=== PATIENT | female | born 1960 | race Caucasian/White ===

== ENCOUNTER 2021-06-28 00:15 | Day surgery (SDC) | payer OTHER, SELFPAY ==
[2021-06-20 10:40] VITALS: BMI 30.2
--- NOTE | 2021-06-20 10:55 | PC.NURSE ---
Report to the Outpatient Waiting Room, entrance under the green pavilion located off [facility], at time 0630 on date06/28/21. OR Time: 0830. - You and your visitor will be asked a series of questions to screen for COVID 19 for your protection. - A mask is required within the hospital. - Only one visitor is allowed at this time. Patient visitors will be guided where to wait when not with patient. Preoperative COVID Testing Requirements: No COVID Test needed if: (proof is required; if not received patient will have Rapid Test prior to entry) - Patient has received COVID Vaccine at least 14 days prior to procedure date or - Patient has positive COVID test result within last 90 days of surgery date. COVID Test needed if above criteria is not met If not COVID vaccinated a COVID test must be conducted within 72 hours of surgery and patient is asked to isolate self from time of testing until procedure. You will go to the [facility] for your COVID testing. The [facility] is located at the corner of [address] [facility]. You will only be called if COVID results are positive and your surgeon may reschedule your elective surgery date. Patients may have clear liquids (water, carbonated beverages, clear teas, apple juice) until 3 hours prior to surgery with a maximum of 20 ounces. - No food from midnight until time of surgery - Infants may have breast milk until 4 hours before surgery, infant formula 6 hours prior to surgery. - Children will be allowed to drink immediately following surgery. If applicable, please bring a bottle or sippy cup to assist with drinking. Juice, water, soda, and popsicles are readily available. For infants on formula, please bring formula the day of surgery. Pacifiers are allowed. Take the following medications with a SIP of water the morning of surgery: LEVOTHYROXINE Medications to discontinue per physician: VITAMINS/SUPPLEMENTS Date to take last dose: 06/24/21 Please no make-up, nail senegalese, hairspray, perfume, deodorant, or body powder the day of surgery. No jewelry (including any body piercings) or valuables the day of surgery, leave them at home. Please take a shower or bath the night before, or the morning of, surgery with an antibacterial soap. Wear comfortable, loose fitting clothing. Children are encouraged to wear pajamas. HIBICLENS SHOWER - Jewelry must be removed prior to entering the operating room. Rings and piercings that are not removed may be cut off. - The hospital will not accept responsibility for valuables. - Please leave all valuables, including medications, at home the day of surgery. If you are going home after surgery, a licensed boom truck driver must drive you home. - NO public transportation without another adult. - We recommend that an adult stay with you for 24 hours following discharge. - We also recommend that you do not drive, make important decision, drink alcoholic beverages, or take any drugs that were not prescribed by your health care provider for at least 24 hours after your discharge time. For Pediatric surgeries, we recommend two adults accompany the child home (only one inside the building at this time). Follow any additional instructions given to you from your surgeon. Telephone instructions given to DEEPA NAILS and asked if any additional questions and then verbalized understanding. Patient advised to call surgeon office or pre surgery nurse liaison [phone] if any additional questions.
--- NOTE | 2021-06-27 12:44 | PM.SD2 ---
Same Day Admit/Disch: HPI History of Present Illness Chief complaint: Incisional Hernia Narrative: Sanam Pantoja is a 61 year old female Who had attempted laparoscopic hysterectomy which was converted to an open hysterectomy at [facility] in November of 2020. Last February, she noticed an umbilical bulge in began experiencing intermittent pain there which was worsened with coughing. It was also worse when she worked out or participated in spinning class. She was seen in the office and found to have a reducible umbilical hernia at the very top of her previous lower abdominal midline incision. It is thought to be a part of the incision. She is taken to surgery now for repair of incisional hernia with mesh. 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) Gender identity (if verbalized by the patient): Female Spiritual care concerns: No Same Day Admit/Disch: Med Pre-admit Medications Home Medications Medication Instructions Recorded Confirmed Type cholecalciferol (vitamin D3) 10 10 mcg PO DAILY 05/10/21 06/28/21 History mcg (400 unit) capsule levothyroxine 25 mcg capsule 25 mcg PO DAILY 05/15/21 06/28/21 History rosuvastatin 10 mg tablet 10 mg PO HS 05/15/21 06/28/21 History hydrocodone-acetaminophen 1 - 2 tablet PO Q6H PRN #15 tablet 06/28/21 Rx ketorolac 10 mg PO Q6H 4 Days #16 tablet 06/28/21 Rx Exam Const: General: comfortable, no acute distress, alert and awake HENMT: Head: normocephalic and atraumatic Mouth: Yes Normal oral and palatal mucosa present Eyes: Conjunctivae: conjunctivae normal Pupils: Equal, round and reactive pupils present EOM: EOMs intact bilaterally Neck: Neck: normal visual inspection, no lymphadenopathy and nontender Resp: Effort & Inspection: normal respiratory effort Auscultation: clear to auscultation bilaterally Cardio: Rate: regular rate Rhythm: regular rhythm Heart sounds: no gallops, no murmurs and no rubs GI: Inspection: non-distended, scar ( Lower abdominal midline scar that goes as high as the top of the umbilicu), visible herniation ( incisional hernia at the umbilicus with slight skin discoloration) and other ( laparoscopic trocar scars as well) GI Palp: Yes Soft to palpation, No Tenderness to palpation present (GI), No Hepatomegaly present, No Splenomegaly present and Yes Hernia present ( incisional hernia at the umbilicus that is reducible.) Auscultation: normal bowel sounds Skin: Lesions: no lesions Rashes: no rashes Neuro: General: no focal motor deficits and CN's II-XI intact bilaterally Cranial nerves: Yes Equal, round and reactive pupils present, Yes Bilaterally intact EOM present, Yes facial symmetry and Yes Midline tongue present Speech: normal speech Motor exam (neuro): 5/5 motor strength present throughout and Motor abnormalities not present Extrem: General: no clubbing, cyanosis or edema and edema Psych: Affect: normal affect Thought process: Normal thought process present Insight: Good insight present (Psych) DS: Summary Time Spent with Patient Time attestation: Total time spent providing and/or party coordinator
[2021-06-28] VITALS (8 sets, daily range): BP systolic 103–122; BP diastolic 55–77; PULSE 66–76; RESP 12–16; TEMP 36.3–36.5; O2SAT 94–99
[2021-06-28] MEDS: ACETAMINOPHEN 500 MG TABLET 1000 MG PO (06:59)
[2021-06-28] MEDS: KETOROLAC 15 MG/ML VIAL (*BKC) IV PUSH (07:27)
--- NOTE | 2021-06-28 07:49 | WPDHPUPDATE1 ---
History and Physical Update Update Date/Time: 06/28/21 07:49 History and Physical has been reviewed, including an updated exam of the patient. There are NO changes in the patient's condition. Risks, benefits, and alternatives have been discussed and questions answered. Patient agrees to proceed with procedure.
[2021-06-28] MEDS: LACTATED RINGERS 1,000 ML 30 ML IV CONT ×2 (07:54→10:23)
--- NOTE | 2021-06-28 08:08 | WPDANESEPPF ---
Anes - Initial Pre Proc Eval Procedure: Operation Date: 06/28/21 08:30 Proposed Procedures p Repair Periumbilical Incisional Hernia Repair with Mesh - Yousif Raymond MD Date/Time: 06/28/21 08:08 Surgeon: Yousif Raymond MD Pre Op Diagnosis: Incisional Hernia Patient Data Age: 61 Gender: F Height: 1.5 m Weight: 69.2 kg Last Vital Signs Temp 36.3 C L 06/28/21 07:45 Pulse 76 06/28/21 07:45 Resp 16 06/28/21 07:45 BP 118/77 06/28/21 07:45 Pulse Ox 97 06/28/21 07:45 Allergies Allergy/AdvReac Type Severity Reaction Status Date / Time Sulfa (Sulfonamide Allergy Mild HIVES, Verified 06/28/21 06:55 Antibiotics) ITCHING Home Medications Medication Instructions Recorded Confirmed Type cholecalciferol (vitamin D3) 10 10 mcg PO DAILY 05/10/21 06/28/21 History mcg (400 unit) capsule levothyroxine 25 mcg capsule 25 mcg PO DAILY 05/15/21 06/28/21 History rosuvastatin 10 mg tablet 10 mg PO HS 05/15/21 06/28/21 History Patient hx anesthesia problems: none Family hx anesthesia problems: none Results Review: All pre-operative results and documents have been reviewed as part of the pre-operative evaluation. 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 Informed Consent: The patient's anesthetic plan and its attendant risks and benefits were discussed with the patient/family/POA. Questions were solicited and answers provided to the satisfaction of the patient/family/POA.
[2021-06-28] MEDS: ceFAZolin 2 GM/D5W 50 ML 2 GM/50 ML BAG IVPB (08:53)
[2021-06-28] MEDS: BUPIVACAINE HCL 0.5% PF 30 ML VIAL INFILTRATE ×2 (09:10→09:59)
--- NOTE | 2021-06-28 10:39 | W.PM.PROC2 ---
Procedure Note - Detailed Date of Procedure 06/28/21 Pre-op Diagnosis Incisional Hernia Post-op Diagnosis same Procedure Performed Repair incisional hernia with Ventrio ST underlay mesh Surgeon Yousif Raymond MD Technology Strategist JESSICA Ngo Anesthesia general and local (0.5% Marcaine) Indications Patient had a previous hysterectomy through a lower abdominal midline incision. The incision extended up above the umbilicus. She has developed a bulge in the umbilicus and is noted to have an incisional hernia. She is taken to surgery now for repair. Findings The majority of the hernia defect was actually above the umbilicus. Only the lower most aspect was involved with the umbilical skin. There was no umbilical hernia. There were no other abdominal wall defects by palpation over the rest of her incision. Description of Procedure Patient was taken to surgery and IV sedation was administered. The entire abdomen was prepped and draped. The uppermost aspect of her previous incision extended above the umbilicus. I katherine an ellipse around the area of the old incision that would be excised. This ellipse extended a little below the umbilicus as well. I then infiltrated local all into the area of the anticipated skin excision. I then excised this ellipse of scar tissue. This was discarded. Cautery was used for hemostasis. I started to dissect the hernia sac. As I opened the hernia sac, I could see that much of the defect was still cephalad of my incision. I infiltrated additional local into the skin. I extended the incision about 3 cm cephalad from its original location. Dissection was carried down through the subcutaneous and now the edges of the hernia defect were well exposed by the skin incision. I dissected and removed the rest of the hernia sac. I then undermined the subcutaneous all around the fascial edges of the hernia defect. The hernia defect was a good-sized being 4 cm in craniocaudad dimension and 3.5 cm in lateral dimension. The umbilical skin was dissected off the fascia and we undermined well below the umbilicus. Eventually we had a good margin of fascia exposed to repair the hernia with underlay mesh. I infiltrated additional local into the fascia all around the area to be repaired. I then placed the mesh in longitudinal fashion and positioned it symmetrically below the hernia defect. 0 Ethibond sutures were used and cranial and caudal transfascial sutures were placed initially. These were each tied down. I then placed 4 transfascial sutures for the lateral fixation. Two were placed on each side. These sutures were placed in such a fashion as they would advance the edges of the hernia defect towards 1 another. These were then tied and had the desired effect. I then closed the defect with [id number] mattress sutures of 0 Ethibond, each of these incorporated bit of mesh as well. The repair looked quite good. Was not under any significant tension. I then sutured the umbilical skin to the fascia with 3-0 Vicryl. The subcutaneous was closed in layers with interrupted 3 0 Vicryl suture. The skin was loosely approximated with 3-0 and 4-0 Vicryl subcuticular interrupted suture. The wound was dressed with Xeroform gauze fluffs and Medipore tape. Patient was awakened and taken to outpatient surgery in good condition. Sponge and needle counts were correct x2. Implants Ventrio ST mesh 8 x 12 cm Estimated Blood Loss -20 Drains No Packing No Pathology none sent Complications No immediate complications Condition stable Disposition same day
[2021-06-28] MEDS: oxyCODONE HCL (*CRX) 5 MG TAB IR PO (11:19)
== END 2021-06-28 12:08 | disposition home or self-care (01) ==
PROVIDERS: PCP Internal Medicine; Visit Provider Surgery
PROC: (CPT 49560; principal; 2021-06-28 08:30)
DX: K43.2 Incisional hernia without obstruction or gangrene (principal); E78.00 Pure hypercholesterolemia, unspecified; E07.9 Disorder of thyroid, unspecified; E66.9 Obesity, unspecified; Z68.30 Body mass index [BMI] 30.0-30.9, adult
CPT/HCPCS: 49560; 49568; A9270; J0690; J1100; J1885; J2250; J2405; J2704; J3010; J7120

== ENCOUNTER → 2021-10-20 13:56 | Outpatient (CLI) | payer OTHER, SELFPAY ==
--- NOTE | ~2021-10-20 | MR_ITS ---
EXAMINATION: MR shoulder RT wo con DATE: 10/20/2021 14:38 INDICATION: Right shoulder pain. TECHNIQUE: Magnetic resonance imaging (MRI) of the right shoulder was performed without intravenous c ontrast. Sequences included axial PD-weighted FS FSE, coronal oblique PD-weighted FS FSE and T2-weigh matias FS FSE, and sagittal oblique T2-weighted FS FSE and T1-weighted FSE. COMPARISON: None. FINDINGS: Coracoacromial arch: The acromion undersurface is curved in morphology (type II). There is mild acromioclavicular joint os teoarthritis. There is mild subacromial/subdeltoid bursitis. Rotator cuff: There is an articular sided partial-thickness tear of the junction of supraspinatus and infraspinatus tendons measuring 9 mm anterior to posterior by 4 mm proximal to distal by 50% tendon thickness. Ter es minor tendon is normal. There are partial tears of superior and distal subscapularis tendon. There is no asymmetric fatty atrophy of the rotator cuff muscle bellies. Biceps tendon and glenoid labrum: Biceps tendon is in bicipital groove. Intra-articular biceps tendon is normal. There is degeneration of superior glenoid labrum without well-defined tear. Fluid: There is a moderate-sized glenohumeral joint effusion. Bones/cartilage: There is shallow partial-thickness cartilage loss of glenoid. There is deep partial thickness cartila ge loss of humeral head superomedially. IMPRESSION: 1. Partial-thickness rotator cuff tears. 2. Moderate glenohumeral joint chondrosis. 3. Moderate-sized glenohumeral joint effusion. 4. Mild acromioclavicular joint osteoarthritis. 5. Mild subacromial/subdeltoid bursitis. Reviewed, dictated and finalized at location A.
== END ==
PROVIDERS: PCP Internal Medicine; Visit Provider Physician Assistant Medical
DX: M25.511 Pain in right shoulder (principal); M75.111 Incomplete rotator cuff tear or rupture of right shoulder, not specified as traumatic; M94.8X1 Other specified disorders of cartilage, shoulder; M25.411 Effusion, right shoulder; M19.011 Primary osteoarthritis, right shoulder; M75.51 Bursitis of right shoulder
CPT/HCPCS: 73221